=== PATIENT | female | born 1940 | race Caucasian/White ===

== ENCOUNTER → 2017-03-07 | Outpatient (CLI) | payer MEDICARE ==
--- NOTE | 2017-03-07 16:08 | Diagnostic Imaging Report ---
EXAMINATION: DEXA scan. INDICATION: Osteopenia. TECHNIQUE: Bone mineral density estimated based on dual energy radiography over the lumbar spine and femoral necks, was performed. FINDINGS: The lumbar spine T-score is -2. T score over the femoral neck on the left side is -1.5 and on the right side is -1.3. IMPRESSION: Osteopenia. Dictated by: Dictated on workstation # [id number]
== END ==
LOC: RAD 09:17
PROVIDERS: ATTEND Family Medicine
DX: M85.851 Other specified disorders of bone density and structure, right thigh (principal); M85.852 Other specified disorders of bone density and structure, left thigh
CPT/HCPCS: 77080

== ENCOUNTER → 2017-06-19 | Outpatient (CLI) | payer MEDICARE ==
--- NOTE | 2017-06-19 09:43 | Diagnostic Imaging Report ---
Bilateral screening mammogram 2D views with tomosynthesis The current study was also evaluated with a Computer Aided Detection (CAD) system. Indication: Screening. No current complaints stated on the questionnaire. COMPARISON: 06/14/16 FINDINGS: The breasts are composed of heterogeneously dense parenchyma which may decrease mammographic sensitivity. There is no mass or architectural distortion seen. Prominent calcifications in the outer aspect of the left breast are stable from 2015 exam compatible with benign etiology. Allowing for technique and positional differences, no suspicious change is seen. IMPRESSION: No significant change. ACR BI-RADS Category 2: Benign findings. Result letter will be mailed to the patient. Note: At least 10% of breast cancer is not imaged by mammography. Dictated by: Dictated on workstation # [id number]
== END ==
LOC: RAD 07:35
PROVIDERS: ATTEND Nurse Practitioner Family
DX: Z12.31 Encounter for screening mammogram for malignant neoplasm of breast (principal)
CPT/HCPCS: 77067

== ENCOUNTER → 2018-06-20 | Outpatient (CLI) | payer MEDICARE ==
--- NOTE | 2018-06-20 19:50 | Diagnostic Imaging Report ---
The current study was also evaluated with a Computer Aided Detection (CAD) system. 3-D tomosynthesis was also performed and reviewed. INDICATION: Digital mammogram bilateral screening. This study was compared to the prior exams of 06/19/2017, 06/14/2016 and 06/13/2015. At this time, there are no current complaints. FINDINGS: The fibroglandular tissue in both breasts is heterogeneously dense. This does limit the sensitivity of this exam. As noted on the previous studies, there is a group of benign-appearing calcifications in the upper-outer aspect of the left breast. These calcifications seem stable when compared to the prior exam. The overall appearance of the breasts itself has not changed significantly. There is no primary or secondary sign of malignancy noted. IMPRESSION: There is no evidence of malignancy. ACR BI-RADS Category 1: Negative. Result letter will be mailed to the patient. Note: At least 10% of breast cancer is not imaged by mammography. Dictated by: Dictated on workstation # [id number]
== END ==
LOC: RAD 07:18
PROVIDERS: ATTEND Nurse Practitioner Family
DX: Z12.31 Encounter for screening mammogram for malignant neoplasm of breast (principal)
CPT/HCPCS: 77067

== ENCOUNTER → 2019-05-06 | Outpatient (CLI) | payer MEDICARE | LOC: CARD 12:38 | PROVIDERS: ATTEND Internal Medicine Interventional Cardiology | DX: I10 Essential (primary) hypertension (principal); I08.2 Rheumatic disorders of both aortic and tricuspid valves; E78.1 Pure hyperglyceridemia | CPT/HCPCS: 93306 ==

== ENCOUNTER → 2019-05-28 | Outpatient (CLI) | payer MEDICARE ==
[~2019-05-28] MED LIST: CATHETER FLUSH 10 ML SYR IV PRN; REGADENOSON 0.4 MG/5 ML SYR (LEXISCAN) IV ONE
[2019-05-28 11:45] VITALS: BP 188/89
[2019-05-28 11:47] VITALS: BP 160/73
--- NOTE | 2019-05-29 12:40 | Cardiology Stress Test Report ---
Stress Test Report Type of NM Stress Test: Test Type: LEXISCAN 0.4MG/5ML Date of Procedure/Referring: Date of Procedure: May 28, 2019 PCP Mil Martins MD Admitting Physician Carmen Carbone MD Indications: Chest pain Baseline Heart Rate: 67 Baseline Blood Pressure: Blood Pressure Systolic: 160 Blood Pressure Diastolic: 73 Baseline EKG: Baseline EKG: sinus rhythm Summary & Conclusion: Summary: The patient was brought to the stress lab after informed consent was taken. St ress test was performed according to the Lexiscan protocol. 0.4 mg of IV Lexiscan was given. Low-grade exercise was performed. Baseline EKG showed sinus rhythm at 67 BPM. Initial blood pressure was 188/89 mmHg. Maximum heart rate was 85 bpm and blood pressure 151/67 mmHg. Patient did not have any chest pain, arrhythmias or ST segment changes during the stress test. 10.23 mCi of Myoview were given for rest imaging and 29.2 mCi of Myoview given for stress imaging. Transient ischemic dilatation score 1.16, EF 77 percent. Normal wall motion. Normal myocardial perfusion imaging during rest and stress. Conclusion: Pharmacological stress test was negative for ischemia. Hypertension. Normal LV function with no wall motion abnormalities. Normal myocardial perfusion imaging during rest and stress. Mil MARTINS MD May 29, 2019 12:40
== END ==
LOC: CARD 10:06
PROVIDERS: ATTEND Internal Medicine Interventional Cardiology
DX: E78.1 Pure hyperglyceridemia (principal); I10 Essential (primary) hypertension; R07.2 Precordial pain
CPT/HCPCS: 78452; 93017

== ENCOUNTER → 2019-07-01 | Outpatient (CLI) | payer MEDICARE ==
--- NOTE | 2019-07-01 12:40 | Diagnostic Imaging Report ---
INDICATION: Routine screening. COMPARISON: 06/20/2018 and 06/19/2017. TECHNIQUE: 2D and 3D bilateral screening mammography was performed with CAD. FINDINGS: Both breasts remain heterogeneously dense, limiting the sensitivity of mammography. The overall parenchymal pattern is stable. Calcifications in the upper outer left breast appear to be stable. No new mass or malignant appearing microcalcifications are seen. The axillae are unremarkable. IMPRESSION: No mammographic features suspicious for malignancy are identified. ACR BI-RADS Category 2: Benign findings. Result letter will be mailed to the patient. Note: At least 10% of breast cancer is not imaged by mammography. Dictated by: Dictated on workstation # [id number]
== END ==
LOC: RAD 07:31
PROVIDERS: ATTEND Nurse Practitioner Family
DX: Z12.31 Encounter for screening mammogram for malignant neoplasm of breast (principal)
CPT/HCPCS: 77067

== ENCOUNTER → 2020-07-04 | Outpatient (CLI) | payer MEDICARE ==
--- NOTE | 2020-07-04 11:37 | Diagnostic Imaging Report ---
INDICATION: Routine screening. Comparison is made with prior mammogram from 07/01/2019 and 06/20/2018. 2-D and 3-D bilateral screening mammography was performed with CAD. Both breasts are heterogeneously dense, limiting the sensitivity of mammography. Calcifications in is upper-outer left breast are stable. No new mass or malignant appearing microcalcifications are seen. Axillae are unremarkable. IMPRESSION: BI-RADS Category 2 No mammographic features suspicious for malignancy are identified. ACR BI-RADS Category 2: Benign findings. Result letter will be mailed to the patient. Note: At least 10% of breast cancer is not imaged by mammography. Dictated by: Dictated on workstation # [id number]
== END ==
LOC: RAD 09:30
PROVIDERS: ATTEND Nurse Practitioner Family
DX: Z12.31 Encounter for screening mammogram for malignant neoplasm of breast (principal)
CPT/HCPCS: 77063; 77067

== ENCOUNTER → 2020-07-20 | Outpatient (CLI) | payer MEDICARE ==
--- NOTE | 2020-07-20 12:28 | Diagnostic Imaging Report ---
INDICATION: Fall with left knee injury and pain. TIME OF EXAM: 11:50 AM. FINDINGS: Three views of the left knee were obtained. The alignment is normal. The joint spaces are well maintained. The articular surfaces are smooth. No fracture, dislocation, or effusion is seen. There are some mild degenerative changes at the patellofemoral joint. IMPRESSION: No acute abnormality is detected. Dictated by: Dictated on workstation # [id number]
--- NOTE | 2020-07-20 12:29 | Diagnostic Imaging Report ---
INDICATION: Fall with left foot injury. TIME OF EXAM: 11:52 AM. FINDINGS: Three views of the left foot were obtained. The metatarsals demonstrate a lucency through the base of the 2nd metatarsal, suggestive of a fracture. Clinical correlation to pain at this location is recommended. The remaining metatarsals are intact. The phalanges appear to be intact. The midfoot and hindfoot are unremarkable. IMPRESSION: Findings are suspicious for a fracture at the base of the 2nd metatarsal. Correlation to pain at this location is recommended. No other abnormality is seen. Dictated by: Dictated on workstation # [id number]
--- NOTE | 2020-07-20 12:30 | Diagnostic Imaging Report ---
INDICATION: Fall. TIME OF EXAM: 11:49 AM. FINDINGS: Two views of the left hip were obtained. The femoroacetabular alignment is normal. The femoral head and neck are intact. No fractures are seen. The left-sided rami appear to be intact. IMPRESSION: No acute bony abnormality is detected. Dictated by: Dictated on workstation # [id number]
== END ==
LOC: RAD 11:04
PROVIDERS: ATTEND Nurse Practitioner Family
DX: M79.672 Pain in left foot (principal)
CPT/HCPCS: 73502; 73562; 73630

== ENCOUNTER → 2020-08-16 | Outpatient (CLI) | payer MEDICARE ==
--- NOTE | 2020-08-16 11:35 | Diagnostic Imaging Report ---
INDICATION: Left foot pain. FINDINGS: Three views of the left foot show no appreciable fracture or dislocation. The previously seen deformity of the base of the 2nd metatarsal is not apparent on these projections. IMPRESSION: Unremarkable left foot. Dictated by: Dictated on workstation # [id number]
== END ==
LOC: RAD 10:30
PROVIDERS: ATTEND Nurse Practitioner Family
DX: S92.902A Unspecified fracture of left foot, initial encounter for closed fracture (principal)
CPT/HCPCS: 73630

== ENCOUNTER → 2021-07-05 | Outpatient (CLI) | payer MEDICARE ==
--- NOTE | 2021-07-05 10:51 | Diagnostic Imaging Report ---
Indication: Routine screening. Comparison is made to prior mammogram 07/04/2020 and 07/01/2019. 2-D and 3-D bilateral screening mammography was performed with CAD. Both breasts are heterogeneously dense, limiting the sensitivity of mammography. Calcifications in the outer left breast appears stable. No new mass or new calcifications are seen. Axillae are unremarkable. IMPRESSION: BI-RADS Category 2 No mammographic features suspicious for malignancy are identified. ACR BI-RADS Category 2: Benign findings. Result letter will be mailed to the patient. Note: At least 10% of breast cancer is not imaged by mammography. Dictated by: Dictated on workstation # [id number]
== END ==
LOC: RAD 07:30
DX: Z12.31 Encounter for screening mammogram for malignant neoplasm of breast (principal)
CPT/HCPCS: 77063; 77067

== ENCOUNTER → 2021-09-01 | Outpatient (CLI) | payer MEDICARE ==
--- NOTE | 2021-09-01 14:36 | Diagnostic Imaging Report ---
EXAMINATION: Magnetic resonance imaging of the left shoulder without contrast. DATE: September 01, 2021. COMPARISON: None. HISTORY: 81-year-old female, left shoulder pain. TECHNIQUE: Magnetic Resonance Imaging sequences were performed of the shoulder without contrast. FINDINGS: ROTATOR CUFF, LIGAMENTS, TENDONS, AND MUSCLES: There is supraspinatus and infraspinatus tendinopathy. The teres minor tendon is intact. The subscapularis tendon is intact. There is edema-like signal in the inferior aspect of the supraspinatus muscle and subscapularis muscle. LONG HEAD OF BICEPS: The biceps labral attachment and long head of the biceps tendon is intact. The long head of the biceps tendon is normally positioned within the bicipital groove. GLENOHUMERAL JOINT: The humeral head is well positioned relative to the glenoid. The labrum is grossly intact. There is no identified paralabral cyst. The articular cartilage is grossly intact. There is no joint effusion. ACROMIOCLAVICULAR JOINT: The acromioclavicular joint is normally aligned. The coracoclavicular and coracoacromial ligaments are intact. There are mild acromioclavicular degenerative changes without large undersurface osteophyte. BONE: There is no os acromiale. There is no Hill-Sachs deformity. There is an incompletely imaged questionable fracture of the scapular body on sagittal T1 sequence image 21. There is adjacent soft tissue edema. There is no particularly prominent adjacent marrow edema. BURSAE AND SOFT TISSUES: The bursae and soft tissue surrounding the shoulder are unremarkable. IMPRESSION: 1. Incompletely imaged questionable fracture of the scapular body. There is no identified particularly prominent adjacent marrow edema in the included [id number]; however, there is abnormal adjacent soft tissue edema. Dedicated CT scapula without contrast is recommended for further assessment. 2. Edema-like signal in the inferior aspect of the supraspinatus muscle and also present in the subscapularis muscle which may reflect low-grade muscle contusions and/or strains. 3. Supraspinatus and infraspinatus tendinopathy. Negative for full-thickness rotator cuff tendon tear. 4. Intact proximal long head of the biceps tendon. 5. Grossly intact labrum and unremarkable additional glenohumeral joint assessment. 6. Mild acromioclavicular degenerative changes without undersurface osteophyte. Report faxed to MARLEY Jules, at 2:33 PM 09/01/2021/cb Dictated by: Dictated on workstation # [id number]
== END ==
LOC: RAD 12:30
PROVIDERS: ATTEND Physician Assistant
DX: M19.012 Primary osteoarthritis, left shoulder (principal); M67.814 Other specified disorders of tendon, left shoulder; I10 Essential (primary) hypertension; E78.49 Other hyperlipidemia; M10.9 Gout, unspecified; Y30.XXXA Falling, jumping or pushed from a high place, undetermined intent, initial encounter
CPT/HCPCS: 73221

== ENCOUNTER → 2021-09-12 | Outpatient (CLI) | payer MEDICARE ==
--- NOTE | 2021-09-12 16:58 | Diagnostic Imaging Report ---
PROCEDURE: CT left upper extremity without contrast. TECHNIQUE: Multiple contiguous axial images were obtained through the left upper extremity without the use of intravenous contrast. Auto Exposure Controls were utilized during the CT exam to meet ALARA standards for radiation dose reduction. INDICATION: Shoulder pain after injury, fall. Abnormal findings on recent MRI of the shoulder. EXAMINATION: CT of the left shoulder without contrast on 09/12/2021. COMPARISON: Correlation is made to an MRI from 09/01/2021. FINDINGS: There is a comminuted fracture which extends through the superior and medial aspect of the scapular body. Lucencies extend laterally along the superior scapular body. There is a lucency which extends laterally and posteriorly through the base of the scapular spine. The glenoid appears preserved. The coracoid is uninvolved. The remaining visualized osseous structures are intact. There are degenerative changes within the visualized cervical spine. The visualized lungs appear unremarkable. IMPRESSION: Comminuted fracture predominantly involving the superior aspect of the scapular body and extending through the base of the scapular spine laterally. Report given to Cee Hills NP at 4:57 PM 09/12/2021/lakshmi Report faxed Dictated by: Dictated on workstation # [id number]
== END ==
LOC: RAD 14:47
PROVIDERS: ATTEND Physician Assistant
DX: S42.112A Displaced fracture of body of scapula, left shoulder, initial encounter for closed fracture (principal); Y30.XXXA Falling, jumping or pushed from a high place, undetermined intent, initial encounter
CPT/HCPCS: 73200

== ENCOUNTER → 2021-09-26 | Outpatient (CLI) | payer MEDICARE | LOC: ORTHO 14:30 | PROVIDERS: ATTEND Orthopaedic Surgery | DX: S42.112A Displaced fracture of body of scapula, left shoulder, initial encounter for closed fracture (principal); X58.XXXA Exposure to other specified factors, initial encounter | CPT/HCPCS: 99202 ==

== ENCOUNTER → 2021-10-02 | Outpatient (CLI) | payer MEDICARE | LOC: CARD 09:00 | PROVIDERS: ATTEND Internal Medicine Cardiovascular Disease | DX: I35.8 Other nonrheumatic aortic valve disorders (principal); I27.20 Pulmonary hypertension, unspecified; I11.9 Hypertensive heart disease without heart failure | CPT/HCPCS: 93306 ==

== ENCOUNTER → 2022-07-06 | Outpatient (CLI) | payer MEDICARE ==
--- NOTE | 2022-07-06 11:31 | Diagnostic Imaging Report ---
Indication: Routine screening. Comparison is made with prior mammograms from 07/05/2021 and 07/04/2020. 2-D and 3-D bilateral screening mammography was performed with CAD. Both breasts are heterogeneously dense, limiting the sensitivity of mammography. The parenchymal pattern is stable. Left breast calcifications are stable. No mass or malignant-appearing microcalcifications are seen. Axillae are unremarkable. IMPRESSION: BI-RADS Category 2 No mammographic features suspicious for malignancy are identified. ACR BI-RADS Category 2: Benign findings. Result letter will be mailed to the patient. Note: At least 10% of breast cancer is not imaged by mammography. Dictated by: Dictated on workstation # [id number]
== END ==
LOC: RAD 08:11
PROVIDERS: ATTEND Nurse Practitioner Family
DX: Z12.31 Encounter for screening mammogram for malignant neoplasm of breast (principal)
CPT/HCPCS: 77063; 77067

== ENCOUNTER → 2022-11-06 | Outpatient (CLI) | payer MEDICARE ==
--- NOTE | 2022-11-06 14:44 | Diagnostic Imaging Report ---
INDICATION: Right knee pain AP, lateral, and sunrise views of the right knee and oblique views were obtained. No fracture or acute bone abnormality is seen. There is mild patellofemoral spurring and small knee joint effusion. Medial and lateral compartments are preserved. IMPRESSION: Mild degenerative change of the patellofemoral compartment with knee joint effusion. No acute bone abnormality. Dictated by: Dictated on workstation # [id number]
== END ==
LOC: ORTHO 09:57
PROVIDERS: ATTEND Orthopaedic Surgery
DX: M17.11 Unilateral primary osteoarthritis, right knee (principal); M25.461 Effusion, right knee
CPT/HCPCS: 73564; G0463; 99213

== ENCOUNTER → 2022-11-28 | Outpatient (CLI) | payer MEDICARE | LOC: ORTHO 09:13 | PROVIDERS: ATTEND Orthopaedic Surgery | DX: M25.561 Pain in right knee (principal); S42.113 Displaced fracture of body of scapula, unspecified shoulder; I10 Essential (primary) hypertension; X58.XXXD Exposure to other specified factors, subsequent encounter | CPT/HCPCS: 99213 ==

== ENCOUNTER → 2023-01-02 | Outpatient (CLI) | payer MEDICARE ==
--- NOTE | 2023-01-02 09:39 | Diagnostic Imaging Report ---
Indication: Left knee pain AP, lateral, and oblique and sunrise views of the left knee are obtained. No fracture or acute bony abnormality seen. There is mild patellofemoral spurring with small joint effusion. There is moderate medial joint space narrowing and osteophyte formation. Impression: Degenerative findings of the left knee as described above with small joint effusion. No acute bony abnormality. Dictated by: Dictated on workstation # [id number]
== END ==
LOC: ORTHO 08:30
PROVIDERS: ATTEND Orthopaedic Surgery
DX: M17.12 Unilateral primary osteoarthritis, left knee (principal); I10 Essential (primary) hypertension; M25.561 Pain in right knee
CPT/HCPCS: 73564; G0463; 99213

== ENCOUNTER → 2023-07-08 | Outpatient (CLI) | payer MEDICARE ==
--- NOTE | 2023-07-08 14:16 | Diagnostic Imaging Report ---
INDICATION: Routine screening. COMPARISON: 07/06/2022 and 07/05/2021. TECHNIQUE: 2D and 3D bilateral screening mammography was performed with CAD. FINDINGS: Both breasts are heterogeneously dense, limiting the sensitivity of mammography. The parenchymal pattern is stable. Left breast calcifications appear stable. No mass or malignant-appearing microcalcifications are identified. The axillae are unremarkable. IMPRESSION: No mammographic features suspicious for malignancy are identified. ACR BI-RADS Category 2: Benign findings. Result letter will be mailed to the patient. Note: At least 10% of breast cancer is not imaged by mammography. Dictated by: Dictated on workstation # [id number]
== END ==
LOC: RAD 08:46
PROVIDERS: ATTEND Family Medicine
DX: Z12.31 Encounter for screening mammogram for malignant neoplasm of breast (principal)
CPT/HCPCS: 77063; 77067